=== PATIENT | female | born 1975 | race African-American/Black ===

== ENCOUNTER 2020-04-30 15:37 | Emergency (ER) | payer OTHER, SELFPAY ==
[2020-04-30] VITALS (19 sets, daily range): BP systolic 112–140; BP diastolic 77–123; PULSE 108–119; RESP 17–37; TEMP 37.3; O2SAT 90–98
--- NOTE | ~2020-04-30 | CT_ITS ---
EXAMINATION: CTA chest PE protocol DATE: 04/30/2020 18:52 INDICATION: Shortness of breath, cough and fever, elevated d-dimer TECHNIQUE: Computed tomography angiography (CTA) of the chest was performed with 100 mL Omnipaque-350 intravenous contrast timed to evaluate the pulmonary arteries. Coronal maximum intensity projection 3D-reconstructions were created by the technologist. The dose-length product (DLP) was 570.21 mGy-cm. Automated exposure control and iterative reconstruction technique were employed. COMPARISON: None. FINDINGS: The pulmonary arteries are well-opacified. No pulmonary embolism is identified. Diffuse betito ateral airspace opacities are present. There is no pleural effusion or pneumothorax. Bilateral hilar and mediastinal lymphadenopathy is noted. The heart size is normal. There is a small sliding hiatal h ernia. IMPRESSION: 1. Diffuse bilateral airspace opacities, consistent with multifocal pneumonia. 2. Mediastinal and bilateral hilar lymphadenopathy, likely reactive. 3. No pulmonary embolism. Reviewed, dictated and finalized at location A. RING TRAIN OPERATOR
--- NOTE | ~2020-04-30 | XR_ITS ---
XR chest 1V portable DATE: 04/30/2020 16:07 INDICATION: Cough, shortness of breath, fever, congestion. Nausea. Headache. TECHNIQUE: Portable AP chest on 04/30/2020 at 1607 hours COMPARISON: None FINDINGS: There is patchy consolidation in the right mid and lower lung zones. There is patchy infilt rate in the left mid lung and patchy atelectasis/consolidation in the left lower lobe. Findings are l ikely due to bilateral pneumonia. Heart size is likely normal considering magnification associated with AP projection. The right hilum appears prominent, possibly due to superimposed infiltrate. Follow-up chest regress a fter clearing of the infiltrates is recommended to exclude any hilar mass, adenopathy or overlying guzman ng mass. IMPRESSION: Bilateral pulmonary infiltrates suggesting bilateral pneumonia Continued radiographic follow-up is recommended Reviewed, dictated and finalized at location A. COLOR TESTER
--- NOTE | 2020-04-30 15:48 | ECG_ITS ---
Measurements Intervals [place] Rate: 115 P: 52 [place]: 158 QRS: -19 QRSD: 73 T: 5 QT: 303 QTc: 419 Interpretive Statements SINUS TACHYCARDIA CANNOT RULE OUT SEPTAL INFARCT, AGE INDETERMINATE INFERIOR INFARCT, AGE INDETERMINATE BASELINE ARTIFACT- V6 ABNORMAL ECG Electronically Signed On 04-30-2020 15:56:06 CORPORATE DEVELOPMENT MANAGER by Sandeep Randhawa D.O.
[2020-04-30 16:33] LABS: Basophils Percent Auto 0.2 % (0.2-1.2); Hematocrit 38.7 % (37.0-47.0); Hemoglobin 13.2 g/dL (12.0-15.0); Immature Granulocyte Absolute 0.03 K/mm3 (0.00-0.031); Immature Granulocyte Percent A 0.6 % (0-0.5); Lymphocytes Absolute Auto 1.19 K/mm3 (0.9-3.2); Lymphocytes Percent Auto 23.9 % (18.3-44.2); Mean Corpuscular HGB Conc 34.1 g/dl (32-36); Mean Corpuscular Hemoglobin 27.6 pg (26-34); Mean Platelet Volume 11.4 fl (7.4-10.4); Monocytes Absolute Auto 0.2 K/mm3 (0.1-0.6); Monocytes Percent Auto 4.8 % (2.6-8.5); Neutrophils Absolute Auto 3.5 K/mm3 (1.3-6.7); Neutrophils Percent Auto 70.5 % (45.5-73.1); Platelet Count Result 161 k/mm3 (150-375); Red Blood Count 4.78 M/mm3 (4.2-5.4); Red Cell Distribution Width 14.2 % (11.5-14.5)
[2020-04-30 16:47] LABS: Anion Gap 13 mmol/L (8-16); Blood Urea Nitrogen 9 mg/dL (7-17); Calcium 9.4 mg/dL (8.4-10.2); Carbon Dioxide 22 mmol/L (22-30); Chloride 97 mmol/L (98-107); Estimated Glomerular Filt Rate > 60; Glucose 350 mg/dL (65-105); Sodium 132 mmol/L (137-145)
[2020-04-30] MEDS: ALBUTEROL SULFATE (*SP) AEROSOL 1 PUFF 6 PUFF INHALATION (18:00)
--- NOTE | 2020-04-30 18:00 | ED.SOB ---
HPI - SOB/Dyspnea General Chief Complaint: Shortness of Breath/Dyspnea Stated Complaint: sob/chills/body aches/loyd Time Seen by Provider: 04/30/20 16:21 Source: patient Mode of arrival: ambulatory Limitations: no limitations History of Present Illness HPI Narrative: 45-year-old female No medical problems that she is aware of She was surprised to learn that her blood sugar today is 350 Complains of feeling bad for 5 days Multiple complaints including muscle aches a dry cough shortness of breath and generalized weakness No nausea vomiting diarrhea, no urinary symptoms Her employer is [employer], her unit is a designated [employer] unit Related Data Allergies Allergy/AdvReac Type Severity Reaction Status Date / Time No Known Allergies Allergy Verified 04/30/20 15:54 Review of Systems Review of Systems: All systems reviewed & are unremarkable except as noted in HPI and below Constitutional: Constitutional: Denies chills, Denies fatigue, Denies fever(s), Denies headache(s) and Denies weakness Eyes: Eyes: Reports no additional eye complaints and Denies change in vision ENT: Denies headache(s), Denies epistaxis, Denies nasal congestion and Denies sore throat Cardiovascular: Cardiovascular: Denies chest pain, Denies leg edema, Denies palpitations and Denies dyspnea Respiratory: Respiratory: Denies cough, Denies dyspnea and Denies wheezing Gastrointestinal: Gastrointestinal: Denies abdominal pain, Denies diarrhea, Denies nausea and Denies vomiting Genitourinary: Genitourinary: Denies hematuria, Denies urinary frequency and Denies dysuria Musculoskeletal: Musculoskeletal: Denies deformity, Denies arthralgias, Denies joint swelling, Denies muscle weakness and Denies numbness Integumentary/Breasts: Skin/Breast: Denies rash and Denies wounds Neurologic: Denies headache(s), Denies focal weakness, Denies numbness and Denies weakness Psychiatric: Psychiatric: Reports no additional psychiatric complaints Endocrine: Endocrine: Denies fatigue and Denies palpitations Hematologic/Lymphatic: Hematologic/Lymphatic: Denies easy bleeding and Denies easy bruising Allergic/Immunologic: Allergic/Immunologic: Denies wheezing PMFSH Social History Social History Gender identity (if verbalized by the patient): Female Exam Const: General: no acute distress, well developed and awake Nutritional Appearance: well nourished Orientation/consciousness: patient oriented x3 (alert) Limitations: no limitations HENMT: Head: normocephalic and atraumatic Ears: external ears normal General nose exam: No nasal discharge present and no epistaxis Face and sinus: face symmetric Mouth: Yes moist mucous membranes Eyes: Conjunctivae: conjunctivae normal Sclera: sclerae normal EOM: EOMs intact bilaterally Neck: Neck: normal visual inspection, supple and no JVD Chest: Chest palpation & inspection: deferred Resp: Effort & Inspection: normal respiratory effort Auscultation: clear to auscultation bilaterally, no rales, no rhonchi, no wheezes and other (BS =) Cardio: Rate: regular rate and tachycardic Rhythm: regular rhythm Heart sounds: no gallops and no murmurs GI: Inspection: normal to inspection GI Palp: Yes Soft to palpation and No Tenderness to palpation present (GI) : General: Yes no CVA tenderness Back/Spine/Pelvis: Thoracic/Lumbar Spine: thoracic and lumbar spine normal to inspection Skin: General skin exam: normal color and no rashes or lesions noted Neuro: General: patient oriented x3 (alert) and moves all extremities Cranial nerves: Yes facial symmetry Speech: normal speech Extrem: General: normal to inspection, full ROM and no pedal edema Psych: Affect: normal affect Course Course Emergency Course: She passed a 60 second test walk at the bedside with O2 saturation of 92% during and following exercise Discussed with patient some medications which might be prescribed in addition to doxycycline and albute
[2020-04-30 18:09] LABS: CRP 6.6 mg/dL (<1.0)
[2020-04-30 18:11] LABS: D Dimer 3.96 ug/mL (<0.48)
[2020-04-30] MEDS: DOXYCYCLINE HYCLATE 100 MG TABLET 200 MG PO (18:16)
[2020-04-30] MEDS: SODIUM CHLORIDE 0.9% IV 1,000 ML 150 ML IV CONT (18:17)
[2020-04-30 18:51] LABS: Lactic Acid Reflex 1.3 mmol/L (0.7-2.1)
--- NOTE | 2020-05-14 10:48 | PC.NURSE ---
LATE ENTRY This note is being entered to document information to the patient's record. The following information was omitted on [04/30/20], by [Helen Faye]. IVF stopped at 2115. 450 ml infused.
== END 2020-04-30 21:15 | disposition home or self-care (01) ==
PROVIDERS: Emergency Medicine; Emergency Provider Emergency Medicine
DX: U07.1 COVID-19 (principal); R73.9 Hyperglycemia, unspecified
CPT/HCPCS: 36415; 71045; 71275; 80048; 83605; 85025; 85380; 86140; 93005; 96360; 96361; 99284; A9270; J7030; Q9967